=== PATIENT | female | born 1990 | race Caucasian/White ===

== ENCOUNTER 2019-01-29 21:16 | Emergency (ER) | payer OTHER ==
[2019-01-29] MEDS ORDERED: METOCLOPRAMIDE HCL INJ/PF 10 MG/2 ML SDV IV ONE (23:21)
[2019-01-29] MEDS ORDERED: NORMAL SALINE 1000 ML 1,000 ML IV ONE (23:21)
[2019-01-29 23:24] LABS: AMORPHOUS SEDIMENT,URINE TRACE /HPF; APPEARANCE,URINE CLOUDY; BILIRUBIN,URINE NEGATIVE (NEGATIVE); COLOR,URINE YELLOW; GLUCOSE, URINE NEGATIVE (NEGATIVE); KETONES,URINE NEGATIVE (NEGATIVE); LEUKOCYTE ESTERASE,URINE MODERATE (NEGATIVE); NITRITE,URINE NEGATIVE (NEGATIVE); PROTEIN,URINE NEGATIVE (NEGATIVE); URINE SPECIFIC GRAVITY 1.016; UROBILINOGEN,URINE NEGATIVE mg/dL (<2.0)
[2019-01-30 00:25] LABS: ALANINE AMINOTRANSFERASE 14 U/L (9-52); ALBUMIN 3.7 g/dL (3.5-5.0); ALKALINE PHOSPHATASE 54 U/L (38-126); ANION GAP 9 (5-19); ASPARTATE AMINO TRANSFERASE 24 U/L (14-36); BILIRUBIN,DIRECT 0.2 mg/dL (0.0-0.4); BILIRUBIN,TOTAL 0.4 mg/dL (0.2-1.3); BLOOD UREA NITROGEN 13 mg/dL (7-20); CALCIUM 9.2 mg/dL (8.4-10.2); CARBON DIOXIDE 23 mmol/L (22-30); CHLORIDE 107 mmol/L (98-107); GLUCOSE 82 mg/dL (75-110); LIPASE 54.4 U/L (23-300); POTASSIUM 4.3 mmol/L (3.6-5.0); SODIUM 139.3 mmol/L (137-145); TOTAL PROTEIN 6.7 g/dL (6.3-8.2)
--- NOTE | 2019-01-30 00:45 | RADIOLOGY REPORT (SQ) ---
EXAM DESCRIPTION: US LESS THAN 14 WEEKS COMPLETED DATE/TME: 01/29/2019 23:21 CLINICAL HISTORY: 28 years Female, preg, no prev us COMPARISON: None TECHNIQUE: Transvaginal. LIMITATIONS: None. FINDINGS: Living intrauterine fetus measures 10w0d with SAMINA of 08/28/2019. Cardiac activity is 163-bpm. [place]-rump length is 3.1-cm. Nonvisualized right ovary, 2.7-cm left ovary, 3.0-cm cervical length, and no free fluid appear otherwise unremarkable. IMPRESSION: Living 1st trimester intrauterine gestation. No evidence of complication.
--- NOTE | 2019-01-30 01:07 | ER Document Report ---
ED General - General Chief Complaint: Nausea/Vomiting Stated Complaint: VOMITING Time Seen by Provider: 01/29/19 23:21 Primary Care Provider: SHITAL WILLS MD [Primary Care Provider] - Follow up as needed Notes: Patient is a 28-year-old female G2, P1 at 10 weeks gestation who presents with nausea and vomiting. Patient states that she has had nausea and vomiting throughout the duration of this but has been unable to tolerate significant oral intake for the past 24 to 48 hours prompting concern that she was becoming increasingly dehydrated. Patient states that nausea and vomiting is worsened by attempts at oral intake, attempted improvement with doxylamine and vitamin B6 combination tablet provided minimal to no relief. She also states that she is not regularly taking this medication secondary to sedating effects. States symptoms are constant and severe in nature. She denies focal abdominal pain, vaginal bleeding, vaginal discharge or dysuria. Has not yet seen her OB regarding today's concerns. Notes some mild lightheadedness which is currently resolved. She is eating [employer] at the time of my assessment. - Related Data Allergies/Adverse Reactions: No Known Allergies Allergy (Unverified 01/29/19 23:19) Past Medical History - General Information source: Patient - Social History Smoking Status: Never Smoker Frequency of alcohol use: None Drug Abuse: None Lives with: Spouse/Significant other Family History: Reviewed & Not Pertinent Patient has suicidal ideation: No Patient has homicidal ideation: No Renal/ Medical History: Denies: Hx Peritoneal Dialysis Review of Systems - Review of Systems Notes: Constitutional: Negative for fever. HENT: Negative for sore throat. Eyes: Negative for visual changes. Cardiovascular: Negative for chest pain. Respiratory: Negative for shortness of breath. Gastrointestinal: Positive for nausea and vomiting Genitourinary: Negative for dysuria. Musculoskeletal: Negative for back pain. Skin: Negative for rash. Neurological: Negative for headaches, weakness or numbness. 10 point ROS negative except as marked above and in HPI. Physical Exam - Vital signs Vitals: Temp Pulse Resp BP Pulse Ox 98.4 F 75 20 114/59 L 99 01/29/19 21:44 01/29/19 21:44 01/29/19 21:44 01/29/19 21:44 01/29/19 21:44 Interpretation: Normal Notes: PHYSICAL EXAMINATION: GENERAL: Well-appearing, well-nourished and in no acute distress. HEAD: Atraumatic, normocephalic. EYES: Pupils equal round and reactive to light, extraocular movements intact, sclera anicteric, conjunctiva are normal. ENT: nares patent, oropharynx clear without exudates. Moist mucous membranes. NECK: Normal range of motion, supple without lymphadenopathy LUNGS: Breath sounds clear to auscultation bilaterally and equal. No wheezes rales or rhonchi. HEART: Regular rate and rhythm without murmurs ABDOMEN: Soft, nontender, normoactive bowel sounds. No guarding, no rebound. No masses appreciated. EXTREMITIES: Normal range of motion, no pitting or edema. No cyanosis. NEUROLOGICAL: No focal neurological deficits. Moves all extremities spontaneously and on command. PSYCH: Normal mood, normal affect. SKIN: Warm, Dry, normal turgor, no rashes or lesions noted. Course - Re-evaluation Re-evalutation: 01/30/19 01:05 Patient presents with persistent vomiting during . Vitals at time of arrival unremarkable without tachycardia or hypotension. Laboratories reveal a normal creatinine and no evidence of significant dehydration. Patient was able to tolerate oral intake here in the emergency department. IV fluids were provided. Formal ultrasound shows appropriate heart rate for gestational age with active movement. No vaginal bleeding or discharge. Based on abdominal exam, vitals and history I do not suspect an acute appendicitis, cholestasis of , acute cholecystitis, pancreatitis, or bowel obstruction. Patient will be started on a combination of doxylamine and vitamin B6. At this time will discharge with return precautions and follow-up recommendations. Verbal discharge instructions given a the bedside and opportunity for questions given. Medication warnings reviewed. Patient is in agreement with this plan and has verbalized understanding of return precautions and the need for primary care follow-up in the next 24-72 hours. - Vital Signs Vital signs: Temp Pulse Resp BP Pulse Ox 98.4 F 90 18 109/70 99 01/29/19 21:44 01/30/19 01:05 01/30/19 01:05 01/30/19 01:05 01/30/19 01:05 - Laboratory Result Diagrams: 01/29/19 23:42 Laboratory results interpreted by me: 01/29/19 01/29/19 21:41 23:42 Creatinine 0.46 L Urine Blood SMALL H Ur Leukocyte Esterase MODERATE H - Diagnostic Test Radiology reviewed: Reports reviewed Discharge - Discharge Clinical Impression: related nausea and vomiting, antepartum Condition: Good Disposition: HOME, SELF-CARE Additional Instructions: You have been seen for vomiting during . You should continue to drink plenty of water and consider taking a solution such as Pedialyte if your having difficulty eating food. Please return if you become unable to drink any fluids for more than 12 hours, urinate less than twice a day, pass out, or have any other symptoms that are concerning to you. For nausea and vomiting during I recommend: Start with 10-12.5 mg of pyridoxine (vitamin B6) three times a day for 2 days. If not fully effective, Increase to 12.5 mg of pyridoxine four times a day for 2 days. If not fully effective, Increase to 25 mg of pyridoxine three times a day for 2 days. If not fully effective, Continue 25 mg pyridoxine 3 times a day, and add 12.5 mg of doxylamine before bedtime each day for 2 days. If not fully effective, Continue 25 mg pyridoxine 3 times a day, and take 12.5 mg of doxylamine twice a day. If not fully effective, Continue 25 mg pyridoxine 3 times a day, and take 12.5 mg of doxylamine three times a day. Forms: Return to Work Referrals: SHITAL WILLS MD [Primary Care Provider] - Follow up as needed
[2019-01-30 01:24] VITALS: BP 109/70
== END 2019-01-30 01:38 | disposition home or self-care (01) ==
LOC: ER 21:16
DX: R11.2 Nausea with vomiting, unspecified (principal); O21.9 Vomiting of pregnancy, unspecified; Z3A.10 10 weeks gestation of pregnancy
CPT/HCPCS: 99284; 96361; 96374; 36415; 84702; 83690; 80053; 81001; 76801; J2765; J7030